=== PATIENT | female | born 1960 | race Caucasian/White ===

== ENCOUNTER 2017-02-24 08:39 | Outpatient (CLI) | payer OTHER, BC ==
--- NOTE | 2017-02-24 14:58 | DEXA Report ---
DEXA SCAN: 02/24/2017 CLINICAL INDICATION: Postmenopausal. TECHNIQUE: Dual energy x-ray absorptiometry (DXA) was performed on a [employer] system. Regions measured are the AP spine, femoral neck, and, if needed, forearm. COMPARISON: None. In accordance with the International Society for Clinical Densitometry (ISCD) guidelines, data from previous exams may be reanalyzed using current recommendations and techniques. This is done to allow a more accurate basis for comparison with the current study. FINDINGS: The data for the lumbar spine is as follows: REGION BMD (g/cm/cm) T-SCORE Z-SCORE L1 0.951 -1.5 -1.2 L2 0.973 -1.9 -1.6 L3 1.061 -1.2 -0.8 L4 0.990 -1.8 -1.4 TOTAL 0.996 -1.5 -1.2 NOTE: All evaluable vertebrae are used for classification. The data for the hip is as follows: REGION BMD (g/cm/cm) T-SCORE Z-SCORE Neck 0.934 -0.7 0.0 TOTAL 0.957 -0.4 -0.1 NOTE: The femoral neck or total proximal femur, whichever is lowest, is used for classification. IMPRESSION: THE WHO CLASSIFICATION BASED ON THE INTERNATIONAL REFERENCE STANDARD IS OSTEOPENIA. THE FRACTURE RISK IS INCREASED. RECOMMENDATION: Patients with diagnosis of osteoporosis or osteopenia should have regular bone mineral density assessment. For those eligible for Medicare, routine testing is allowed once every 2 years. Testing frequency can be increased for patients who have rapidly progressing disease or for those who are receiving medical therapy to restore bone mass. COMMENT: World Health Organization (WHO) definitions for osteoporosis and osteopenia: NORMAL BMD: T-score at -1.0 or higher, fracture risk is low. OSTEOPENIA BMD: T-score between -1.0 and -2.5, fracture risk is increased. OSTEOPOROSIS BMD: T-score at -2.5 or lower, fracture risk high. National Osteoporosis Foundation recommends: 1. Obtain adequate dietary calcium (at least 1200 mg per day) and vitamin D (400 -800 international units per day). 2. Participate, as appropriate, in regular weightbearing and muscle- strengthening exercise. 3. Avoid tobacco use and reduce alcohol and caffeine intake. 4. For more detailed information see the website at www.NOF.org. MTDD
== END 2017-02-24 08:40 | disposition home or self-care (01) ==
LOC: DI 08:39
PROVIDERS: ATTEND Internal Medicine
DX: Z13.820 Encounter for screening for osteoporosis (principal); M85.88 Other specified disorders of bone density and structure, other site
CPT/HCPCS: 77080

== ENCOUNTER 2017-03-23 13:34 | Outpatient (CLI) | payer OTHER ==
--- NOTE | 2017-03-23 17:10 | XRAY Report ---
LEFT HIP AND PELVIS: 03/23/2017 CLINICAL INDICATION: Pain. Frontal view of the hips and pelvis, and frog-leg lateral view of the left hip demonstrate no evidenc e of fracture or dislocation. The joint spaces are preserved. An IUD is incidentally noted in the p willa. IMPRESSION: NORMAL LEFT HIP AND PELVIS. JOB #: [id number] EXT JOB #:[id number]
== END 2017-03-23 13:35 | disposition home or self-care (01) ==
LOC: DI 13:34
PROVIDERS: ATTEND Family Medicine
DX: M25.552 Pain in left hip (principal)

== ENCOUNTER 2017-03-24 16:17 | Outpatient (CLI) | payer OTHER ==
--- NOTE | 2017-03-28 17:24 | Mammography Report ---
DIGITAL SCREENING MAMMOGRAM: 03/24/2017 CLINICAL INDICATION: A 56-year-old with history of benign left breast biopsy for screening. COMPARISON: 10/2015, 09/2014, 11/2013, 02/2012, 03/2009 TECHNIQUE: Routine CC and MLO projections were obtained of the breasts as well as bilateral laterall y exaggerated craniocaudal views. FINDINGS: The breasts again demonstrate heterogeneously dense fibroglandular parenchyma bilaterally. Post-biopsy changes in the left upper, outer central breast are stable. A few punctate, typically benign calcifications are present. No suspicious masses, clustered microcalcifications, or regions o f architectural distortion are identified. IMPRESSION: BENIGN FINDINGS. RECOMMENDATION: Routine annual screening unless otherwise clinically indicated. BIRADS CATEGORY 2 - BENIGN FINDINGS. STANDARD QUALIFYING STATEMENTS 1. This examination was reviewed with the aid of Computer-Aided Detection (CAD). 2. A negative or benign imaging report should not delay biopsy if clinically suspicious findings are present. Consider surgical consultation if warranted. More than 5% of cancers are not identified by i maging. 3. Dense breasts may obscure an underlying neoplasm. JOB #: [id number] EXT JOB #:[id number]
== END 2017-03-24 16:18 | disposition home or self-care (01) ==
LOC: DI 16:17
PROVIDERS: ATTEND Family Medicine
DX: Z12.31 Encounter for screening mammogram for malignant neoplasm of breast (principal)
CPT/HCPCS: 77067

== ENCOUNTER 2018-05-05 10:39 | Outpatient (CLI) | payer BC ==
--- NOTE | 2018-05-06 17:53 | XRAY Report ---
Reason: CERVICALGIA Procedure Date: 05/05/2018 Accession Number: [id number] / [id number] Procedure: XR - Cervical Spine 2 View CPT Code: FULL RESULT: EXAM: CERVICAL SPINE RADIOGRAPHY EXAM DATE: 05/05/2018 11:03 AM. CLINICAL HISTORY: CERVICALGIA. COMPARISONS: None. TECHNIQUE: 3 views. FINDINGS: Alignment: Normal. No spondylolisthesis or scoliosis. Bones: The cervical vertebral bodies and posterior elements are well visualized from the skull base through C7-T1. No fractures or bone lesions. Disks: Normal. Disk heights are maintained. Facets: No degenerative disease. Soft Tissues: Normal. No prevertebral soft tissue swelling. The visualized lung apices are clear. IMPRESSION: Normal cervical spine radiography. RADIA
== END 2018-05-05 10:40 | disposition home or self-care (01) ==
LOC: DI 10:39
PROVIDERS: ATTEND Family Medicine
DX: M54.2 Cervicalgia (principal)
CPT/HCPCS: 72040

== ENCOUNTER 2018-05-09 16:03 | Outpatient (CLI) | payer BC ==
--- NOTE | 2018-05-14 15:29 | Mammography Report ---
Reason: SCREENING MAMMO Procedure Date: 05/09/2018 Accession Number: [id number] / [id number] Procedure: ALIN - Screening Mammo Dig Bilat CPT Code: FULL RESULT: EXAM: Screening Mammo Dig Bilat DATE: 05/09/2018 4:51 PM CLINICAL HISTORY: 58-year-old female with history of left breast biopsy with benign results and family history of breast cancer in an aunt at age 40. TECHNIQUE: Bilateral CC and MLO views were obtained. COMPARISON: 03/24/2017, 10/22/2015, 10/02/2014, 01/10/2014. FINDINGS: The breasts demonstrate heterogeneously dense fibroglandular parenchyma bilaterally. Postbiopsy changes are seen in the left breast. No suspicious masses, clustered microcalcifications, or regions of architectural distortion are identified. IMPRESSION: Benign findings RECOMMENDATION: Routine annual screening unless otherwise clinically indicated. BIRADS CATEGORY 2: Benign findings STANDARD QUALIFYING STATEMENTS: 1. This examination was not reviewed with the aid of Computer-Aided Detection (CAD). 2. A negative or benign imaging report should not delay biopsy if clinically suspicious findings are present. Consider surgical consultation if warrented. More than 5% of cancers are not identified by imaging. 3. Dense breasts may obscure an underlying neoplasm.
== END 2018-05-09 16:04 | disposition home or self-care (01) ==
LOC: DI 16:03
PROVIDERS: ATTEND Radiology Diagnostic Radiology
DX: Z12.31 Encounter for screening mammogram for malignant neoplasm of breast (principal); Z80.3 Family history of malignant neoplasm of breast
CPT/HCPCS: 77067

== ENCOUNTER 2020-08-10 13:55 | Outpatient (CLI) | payer OTHER ==
--- NOTE | 2020-08-11 09:54 | Mammography Report ---
BILATERAL DIGITAL SCREENING MAMMOGRAM 3D/2D: 08/10/2020 CLINICAL: Routine screening. Comparison is made to exams dated: 05/09/2018 mammogram, 03/24/2017 mammogram, 10/22/2015 mammogram, 10/02 mammogram, 01/10/2014 mammogram, and 01/03/2014 mammogram - [facility]. There are scattered fibroglandular elements in both breasts. There is a focal asymmetry in the right breast central to the nipple posterior depth. No other significant masses, calcifications, or other findings are seen in either breast. IMPRESSION: INCOMPLETE: NEEDS ADDITIONAL IMAGING EVALUATION The focal asymmetry in the right breast is indeterminate. Additional views with possible ultrasound are recommended. This exam was interpreted at Station ID: [id number]. NOTE: For mammograms, a report in lay terms will be sent to the patient. Approximately 15% of breast malignancies will not be visualized mammographically. In the management of a palpable breast mass, a negative mammogram must not discourage biopsy of a clinically suspicious lesion. Electronically Signed By: Ashley elizabeth/yoly:08/10/2020 15:59:50 ACR BI-RADS Category 0: Incomplete 3340F PARENCHYMAL PATTERN: (A) - The breast(s) demonstrate(s) scattered fibroglandular densities. BI-RADS CATEGORY: (0) - 0 Mammo and [place] [id number] Immediate follow-up LATERALITY: (B)
== END 2020-08-10 13:56 | disposition home or self-care (01) ==
LOC: DI.N 13:55
PROVIDERS: ATTEND Family Medicine
DX: Z12.31 Encounter for screening mammogram for malignant neoplasm of breast (principal); N64.89 Other specified disorders of breast
CPT/HCPCS: 77067

== ENCOUNTER 2020-08-10 14:02 | Outpatient (CLI) | payer OTHER ==
--- NOTE | 2020-08-13 16:35 | XRAY Report ---
PROCEDURE: Wrist 4 View RT INDICATIONS: RIGHT WRIST PAIN TECHNIQUE: 4 views of the wrist were acquired. COMPARISON: None FINDINGS: Bones: No fractures or dislocations. No suspicious bony lesions. Minimal early degenerative change . Scaphoid view: No visualized fracture. Soft tissues: No suspicious soft tissue calcifications. IMPRESSION: Minimal early degenerative change. Reviewed by: Danisha Radford MD on 08/10/2020 4:29 PM PST Approved by: Danisha Radford MD on 08/10/2020 4:29 PM PST Station ID: [id number]
== END 2020-08-10 14:03 | disposition home or self-care (01) ==
LOC: DI.N 14:02
PROVIDERS: ATTEND Family Medicine
DX: M19.031 Primary osteoarthritis, right wrist (principal)

== ENCOUNTER 2020-10-07 10:17 | Outpatient (CLI) | payer OTHER ==
--- NOTE | 2020-10-08 17:05 | Mammography Report ---
UNILATERAL RIGHT DIGITAL DIAGNOSTIC MAMMOGRAM 3D/2D: 10/07/2020 CLINICAL: Additional evaluation requested from prior study. Short term follow up of the right breast. Comparison is made to exams dated: 08/10/2020 mammogram, 05/09/2018 mammogram, and 03/24/2017 mammogram - [facility]. There are scattered fibroglandular elements in right breast. The previously seen focal asymmetry in the right breast disperses on spot compression views, compatib le with normal fibroglandular breast tissue. No significant masses, calcifications, or other findings are seen in the breast. IMPRESSION: NEGATIVE There is no mammographic evidence of malignancy. A 1 year screening mammogram is recommended. This exam was interpreted at Station ID: [id number]. NOTE: For mammograms, a report in lay terms will be sent to the patient. Approximately 15% of breast malignancies will not be visualized mammographically. In the management of a palpable breast mass, a negative mammogram must not discourage biopsy of a clinically suspicious lesion. Electronically Signed By: Eldon smith/yoly:10/07/2020 10:56:23 ACR BI-RADS Category 1: Negative 3341F PARENCHYMAL PATTERN: (A) - The breast(s) demonstrate(s) scattered fibroglandular densities. BI-RADS CATEGORY: (1) - 1 RECOMMENDATION: (ANNUAL) - Recommend routine annual screening mammography. [id number] 1 year screening LATERALITY: (B)
== END 2020-10-07 10:18 | disposition home or self-care (01) ==
LOC: DI 10:17
PROVIDERS: ATTEND Family Medicine
DX: R92.8 Other abnormal and inconclusive findings on diagnostic imaging of breast (principal)

== ENCOUNTER 2023-12-26 07:55 | Outpatient (CLI) | payer OTHER ==
--- NOTE | 2023-12-26 11:18 | XRAY Report ---
Humerus LT HISTORY: 63 years of age, PAIN IN UPPER ARM TECHNIQUE: Humerus LT COMPARISON: None. FINDINGS/IMPRESSION: No acute fracture or dislocation. Reviewed by: Alexandra Noonan MD on 12/26/2023 11:16 AM PDT Approved by: Alexandra Noonan MD on 12/26/2023 11:16 AM PDT Station ID: [id number]
== END 2023-12-26 07:56 | disposition home or self-care (01) ==
LOC: DI.N 07:55
PROVIDERS: ATTEND Internal Medicine
DX: M79.622 Pain in left upper arm (principal)

== ENCOUNTER 2024-01-01 21:33 | Outpatient (CLI) | payer OTHER ==
--- NOTE | 2024-01-02 09:56 | Ultrasound Report ---
PROCEDURE: Duplex Ext Veins Left INDICATIONS: UPPER EXTREMITY - LEFT UNDER ARM PAIN TECHNIQUE: Real-time imaging, as well as color and pulse Doppler interrogation, were performed of the lower extr emity deep veins from the inguinal ligament to the popliteal fossa. Attempted visualization of the ca lf veins was performed. COMPARISON: None. FINDINGS: The deep veins are normally compressible, and free of intraluminal thrombus. Color and pu lse Doppler demonstrate normal phasic intraluminal flow. IMPRESSION: No DVT in the visualized left upper extremity. Reviewed by: Nathaniel Locke MD on 01/02/2024 9:55 AM PDT Approved by: Nathaniel Locke MD on 01/02/2024 9:55 AM PDT Station ID: [id number]
== END 2024-01-01 21:34 | disposition home or self-care (01) ==
LOC: DI 21:33
PROVIDERS: ATTEND Internal Medicine
DX: M79.622 Pain in left upper arm (principal)